=== PATIENT | male | born 1990 | race Caucasian/White ===

== ENCOUNTER 2016-08-05 16:17 | Emergency (ER) | payer MEDICARE, BC ==
--- NOTE | ~2016-08-05 | ER ---
PATIENT'S NAME: MARTY DIXON [facility] AGE: 25 Y [address] ROOM: [place], [place] [address] LOCATION: [facility] ADMIT DATE: 08/05/2016 ER/Outpatient Report DISCHARGE DATE: 08/05/2016 FAMILY PHYSICIAN: Physician, Unknown ATTENDING PHYSICIAN: Britt Taylor Time of Arrival: 1617 hours. Time of Evaluation: 1620 hours. CHIEF COMPLAINT: Left hand laceration. HISTORY OF PRESENT ILLNESS: The patient states just prior to arrival, he was using a machete that was rather dull to breakdown cardboard box for recycling when he cut his left thumb. The cut is near the MCP joint. He states it bled quite a bit. No other injuries with the incident. ALLERGIES: NO KNOWN ALLERGIES. CURRENT MEDICATIONS: On his chart and were reviewed by me. PAST MEDICAL HISTORY: Includes ADHD, alcohol syndrome, OCD, Tourette's. SOCIAL HISTORY: The patient denies the use of tobacco, drugs, or alcohol. REVIEW OF SYSTEMS: All negative other than those mentioned in the HPI. PHYSICAL EXAMINATION: VITAL SIGNS: He weighed 88 kg. Blood pressure is 142/96, pulse of 89, respirations 16, temperature of 97.4 tympanic; and O2 saturation is 96% on room air. GENERAL: He is awake, alert, and oriented x4. SKIN: Kress, warm, and dry. RESPIRATIONS: Even and nonlabored. Lung sounds are clear throughout. HEART: Regular rate and rhythm. SKIN: The patient has a 3 cm laceration of the left thumb dorsal aspect that is approximately 3 cm in length. He has sensation to the tip of his fingers. He is unable to extend his thumb back. He states it hurts to move the thumb in any direction. PATIENT'S NAME: MARTY DIXON [facility] AGE: 25 Y [address] ROOM: [place], [place] [address] LOCATION: [facility] ADMIT DATE: 08/05/2016 ER/Outpatient Report DISCHARGE DATE: 08/05/2016 FAMILY PHYSICIAN: Physician, Unknown ATTENDING PHYSICIAN: Britt Taylor LABORATORY DATA AND X-RAYS: X-ray was completed, reviewed with Dr. Taylor. No acute bony abnormality is seen. With the patient being unable to extend his fingers, I did call and talk to Dr. Siu who is their orthopedic preference. He asked that we clean it well, sew it, and then put in a splint with the thumb being extended and follow up in the clinic on Wednesday. I did discuss with the patient's mother the plan of care. EMERGENCY COURSE: Left thumb was anesthetized with 1% plain Xylocaine. Washed well with saline and Betadine. Initially closed with 3-0 chromic x2 and then 4-0 Ethilon x6 stitches. The patient tolerated the procedure well. The nail bed continued to be pink. He had strong pulses. Thumb itself was pink. The thumb was then placed in an aluminum finger splint, and a spica thumb splint was applied. The patient tolerated the procedure well. IMPRESSION: Laceration to the left thumb with potential tendon involvement. PLAN: The patient is to keep the splint on. Encouraged them to keep it elevated. Tylenol or ibuprofen as needed for discomfort. Follow up with Dr. Siu's office on Wednesday or sooner if developed problems. The patient and his mother verbalized understanding. DIONISIO DUMONT APRN FOR MD JEREMIAH YANEZ/tanvi /[id number] d: 08/06/16 0152 t: 08/08/16 1819, OUTPATIENT REPORT
== END 2016-08-05 17:50 | disposition disaster alternative care site (69) ==
LOC: GACC 16:17
PROC: 0HQGXZZ Repair Left Hand Skin, External Approach (ICD-10-PCS; principal; 2016-08-05)
DX: S66.222A Laceration of extensor muscle, fascia and tendon of left thumb at wrist and hand level, initial encounter (principal); F90.9 Attention-deficit hyperactivity disorder, unspecified type; F42.9 Obsessive-compulsive disorder, unspecified; W26.0XXA Contact with knife, initial encounter